=== PATIENT | male | born 1970 | race Asian ===

== ENCOUNTER 2024-02-02 12:17 | Emergency (ER) | payer OTHER ==
[~2024-02-02] VITALS: Ht 175.3 cm; Wt 83.9 kg
[2024-02-02 12:33] VITALS: BP 159/92; PULSE 96; RESP 16; TEMP 98.3; O2SAT 97
[2024-02-02] MEDS ORDERED: IBUP-2213 PO (13:23)
[2024-02-02] MEDS ORDERED: ACET500T99 PO (13:23)
[2024-02-02] MEDS: IBUPROFEN 600 MG TAB PO ONE (13:32)
[2024-02-02] MEDS: ACETAMINOPHEN 325 MG TAB PO ONE (13:32)
== END 2024-02-02 14:00 | disposition home or self-care (01) ==
LOC: MED 12:17
DX: S63.502A Unspecified sprain of left wrist, initial encounter (principal); Z79.899 Other long term (current) drug therapy; I10 Essential (primary) hypertension; E11.9 Type 2 diabetes mellitus without complications; E78.5 Hyperlipidemia, unspecified; X50.1XXA Overexertion from prolonged static or awkward postures, initial encounter; Y93.89 Activity, other specified; Y92.89 Other specified places as the place of occurrence of the external cause; Y99.8 Other external cause status
CPT/HCPCS: 73110; 99283